=== PATIENT | female | born 1970 | race American Indian/Alaskan Native ===

== ENCOUNTER 2017-09-30 13:34 | Emergency (ER) | payer OTHER ==
--- NOTE | 2017-09-30 15:54 | Emergency Department Report ---
ED Back Pain/Injury HPI - General Chief Complaint: Back Pain/Injury Stated Complaint: LOWER BACK PAIN Time Seen by Provider: 09/30/17 14:43 Source: patient Limitations: No Limitations - History of Present Illness Initial Comments: This is a 47-year-old -[place] female who presents with low back pain that is radiating down left lower extremity for 4 days. 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 The patient states she tried to help patient got down to the ground in her back when out. Patient states she started having sharp pain bilateral lower back with sharp radiating pains from lower back to right thigh. Patient reports pain is 10 out of 10 on pain scale worse with movement. Patient states pain is intermittent and lasts for 30 minutes to 4 hours. She has been taking [id number] insulin units and apply warm heat with no improvement of symptoms. Patient has a past medical history of hypertension but currently doesn't have insurance and unable to follow up with primary care provider. Patient states she has been off blood pressure medication for several months. Patient denies visual changes, headache, numbness or tingling, nausea or vomiting, change in voiding or bowel pattern, and headache. MD Complaint: back pain Onset/Timin -: days(s) Similar Symptoms Previously: Yes Place: work Radiation: left leg Severity: severe Severity scale (0 -10): 10 Quality: sharp, aching Consistency: intermittent Improves With: none Worsens With: movement, sitting upright, walking Context: while lifting Associated Symptoms: denies other symptoms Treatments Prior to Arrival: heat therapy, NSAIDS - Related Data Previous Rx's Medication Instructions Recorded Last Taken Type Lisinopril [Zestril TAB] 5 mg PO QDAY #30 tablet 09/30/17 Unknown Rx Naproxen [Naprosyn] 500 mg PO BID #15 tablet 09/30/17 Unknown Rx amLODIPine [Norvasc] 5 mg PO DAILY #30 tab 09/30/17 Unknown Rx hydroCHLOROthiazide [HCTZ] 12.5 mg PO QDAY #30 capsule 09/30/17 Unknown Rx tiZANidine [Zanaflex] 4 mg PO TID PRN #15 tablet 09/30/17 Unknown Rx traMADol [Ultram 50 MG tab] 50 mg PO Q6HR PRN #12 tablet 09/30/17 Unknown Rx Allergies Allergy/AdvReac Type Severity Reaction Status Date / Time No Known Allergies Allergy Unverified 09/30/17 16:07 ED Review of Systems ROS: Stated complaint: LOWER BACK PAIN Other details as noted in HPI Constitutional: denies: chills, fever Respiratory: denies: cough, shortness of breath, wheezing Cardiovascular: denies: chest pain, palpitations Gastrointestinal: denies: abdominal pain, nausea, vomiting, diarrhea Musculoskeletal: back pain (low back pain radiating down left lower extremity). denies: joint swelling, arthralgia Skin: denies: rash, lesions Neurological: denies: headache, weakness, numbness, paresthesias Psychiatric: denies: anxiety, depression ED Back Pain Physical Exam - Exam General: Vital signs noted. No distress. Alert and acting appropriately. Back/Abdomen: Yes Sacroiliac Tenderness (above left iliac joint), Yes Straight Leg Raise Pain (left), No Abdominal Tenderness, No Perithoracic Tenderness, No Perilumbar Tenderness, No Flank Tenderness Neuro: Yes Normal Sensation, Yes Normal DTR's, Yes Normal Gait, No Motor Weakness ED Course Vital Signs 09/30/17 09/30/17 13:59 14:03 Temperature 98.1 F Pulse Rate 75 Respiratory 16 Rate Blood Pressure 223/117 [Right] O2 Sat by Pulse 100 Oximetry Ed Back Pain Tests - Tests Tests: Abnormal X Rays (Mild disc space narrowing at L3-4) ED Medical Decision Making - Radiology Data Radiology results: report reviewed FINAL REPORT PROCEDURE: Lumbar spine. TECHNIQUE: Three views. HISTORY: Low back pain. COMPARISON: No prior studies are available for comparison. FINDINGS: The bones appear intact without fracture or dislocation. There is mild disc space narrowing at L3-4. There are small osteophytes at this level. There is no spondylolisthesis. The sacrum and sacroiliac joints appear normal. IMPRESSION: Mild disc space narrowing at L3-4. - Medical Decision Making This is a 47 y.o. female presents with low back pain radiating down the right lower extremity for 4 days. Patient was examined by me. Patient is in no acute distress. Blood pressure elevated on arrival. Patient given clonidine 0.2 mg po once and tramadol 50 mg po once in ER. Obtained a x-ray of L-spine. X-ray dictated by radiologist and Mild disc space narrowing at L3-4. Patient informed of results. Start naproxen, tramadol, and cyclobenzaprine for pain. Start lisinopril, amlodipine, and HCTZ for HTN. Plan discussed with patient to discharge home and treat outpatient. Referral to [facility]. Patient discharged home in stable condition. Follow up with PCP in 2-3 days. Critical care attestation.: If time is entered above; I have spent that time in minutes in the direct care of this critically ill patient, excluding procedure time. ED Disposition Clinical Impression: Low back pain radiating to left leg, Sciatic leg pain, Asymptomatic hypertension Hypertension Qualifiers: Hypertension type: essential hypertension Qualified Code(s): I10 - Essential ( primary) hypertension Disposition: TO HOME OR SELFCARE Is pt being admited?: No Does the pt Need Aspirin: No Condition: Stable Instructions: Low Back Strain (ED), Acute Low Back Pain (ED), DASH Eating Plan (ED), Hypertension (ED) Additional Instructions: Rest Use ice or heat on affected area for 20 minutes and off for 2 hours. Take pain medication as needed for pain. Don't drive or operate heavy machinery while taking muscle relaxers because they may cause drowsiness. Follow up with Primary Care Provider at [facility] in 2-3 days. Prescriptions: amLODIPine [Norvasc] 5 mg PO DAILY #30 tab hydroCHLOROthiazide [HCTZ] 12.5 mg PO QDAY #30 capsule Lisinopril [Zestril TAB] 5 mg PO QDAY #30 tablet Naproxen [Naprosyn] 500 mg PO BID #15 tablet tiZANidine [Zanaflex] 4 mg PO TID PRN #15 tablet PRN Reason: Muscle Spasm traMADol [Ultram 50 MG tab] 50 mg PO Q6HR PRN #12 tablet PRN Reason: Pain Referrals: [facility] [place]Outside] - 3-5 Days [facility] [Outside] - 3-5 Days [facility] [Outside] - 3-5 Days MARBIN MATUTE MD [Staff Physician] - 3-5 Days Time of Disposition: 19:00 Print Language: ICELANDIC
[2017-09-30] MEDS ORDERED: ULTRAM PO ONE (16:08)
--- NOTE | 2017-09-30 16:51 | XRay Report ---
FINAL REPORT PROCEDURE: Lumbar spine. TECHNIQUE: Three views. HISTORY: Low back pain. COMPARISON: No prior studies are available for comparison. FINDINGS: The bones appear intact without fracture or dislocation. There is mild disc space narrowing at L3-4. There are small osteophytes at this level. There is no spondylolisthesis. The sacrum and sacroiliac joints appear normal. IMPRESSION: Mild disc space narrowing at L3-4.
[2017-09-30] MEDS ORDERED: CATAPRES PO ONE ×2 (17:09→17:52)
[2017-09-30] MEDS ORDERED: APRESOLINE PO ONE (17:40)
[2017-09-30 18:39] VITALS: BP 185/80
== END 2017-09-30 19:17 | disposition home or self-care (01) ==
LOC: ED 13:34
DX: M54.42 Lumbago with sciatica, left side (principal); I10 Essential (primary) hypertension
CPT/HCPCS: 72100; 99283